=== PATIENT | female | born 2000 | race Caucasian/White ===

== ENCOUNTER 2022-04-11 19:31 | Emergency (ER) | payer BC, SELFPAY ==
[2022-04-11 20:30] VITALS: BP 154/78; PULSE 89; RESP 18; TEMP 36.6; O2SAT 99; BMI 37.1
--- NOTE | 2022-04-11 21:06 | ED.SKABFB ---
HPI - Skin/Abscess/Foreign Bdy General Chief complaint: Skin/Abscess/Foreign Body Stated complaint: Possible staff infection Time Seen by Provider: 04/11/22 20:30 History of Present Illness HPI narrative: This 22-year-old female comes in with redness and pain in her right hand. She states that she scraped her hand about 6 weeks ago when moving into an apartment. 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 However she does get scratches on her hands. She has had cellulitis for under these circumstances in the past and feels like this is recurred again here. She also states that she has eczema in is using moist arising and steroid creams to treat this. She does not report any fevers. Related Data Home Medications Medication Instructions Recorded Confirmed brexpiprazole 2 mg tablet (Rexulti) 2 mg PO HS 04/11/22 04/11/22 bupropion HCl 300 mg 24 hr tablet, 300 mg PO DAILY 04/11/22 04/11/22 extended release dextroamphetamine-amphetamine ER 25 mg PO DAILY 04/11/22 04/11/22 25 mg 24hr capsule,extend release dextroamphetamine-amphetamine ER 30 mg PO DAILY 04/11/22 04/11/22 30 mg 24hr capsule,extend release etonogestrel 68 mg subdermal 1 implant subdermal .6 months 04/11/22 04/11/22 implant (Nexplanon) propranolol 40 mg tablet 40 mg PO DAILY 04/11/22 04/11/22 trazodone 50 mg tablet 50 mg PO HS 04/11/22 04/11/22 Allergies Allergy/AdvReac Type Severity Reaction Status Date / Time amoxicillin Allergy Mild Hives Verified 04/11/22 20:38 Review of Systems Status of ROS: Reports: 10 or more systems reviewed and unremarkable except as noted in History and below Narrative: Constitutional: No fevers, no weight gain or loss. Eyes: No discharge. No vision changes. HENT: No congestion, no sore throat, no ear pain. Cardiovascular: No chest pain, no palpitations. Respiratory: No shortness of breath, no wheezes, no cough. Gastrointestinal: No abdominal pain, no vomiting, no diarrhea. Genitourinary: No dysuria, no hematuria. Musculoskeletal: Normal range of motion. Skin: Erythema, warmth, and pain in the right hand. Neurological: No dizziness, weakness, sensory change, speech change. Endo/Heme/Allergies: No bruising or bleeding. No polydipsia. Pysch: no suicidality, no anxiety, no insomnia. All other systems reviewed and are negative. Exam Narrative: Exam Narrative: Constitutional: Well-developed, well-nourished, no acute distress. HEENT: Normocephalic, atraumatic. Neck: Normal range of motion. Nontender. Supple. Heart: Intact distal pulses. Lungs: No chest discomfort. No wheezes, rhonchi, or rales. Abdomen: Nontender. Back: Normal range of motion. Extremities: Normal range of motion. No injury. Skin: The dorsal aspect of the right hand and somewhat on the palmar aspect is erythema, warmth, and mild swelling. Neurologic: No altered sensation. No weakness. Alert and oriented. Psychiatric: No suicidality. No anxiety or depression. No insomnia. Nursing notes and vitals signs are reviewed. Const: Vital Signs, click to edit/add: Vital Signs - 24 hr 04/11/22 20:30 Temperature 97.9 F Pulse Rate [Right Pulse Oximeter] 89 Respiratory Rate 18 Blood Pressure [Ri ght Upper Arm] 154/78 H Pulse Oximetry 99 Oxygen Delivery Me thod Room Air Course Vital Signs Vital signs: Initial Vital Signs Temperature 97.9 F 04/11/22 20:30 Temperature Source Temporal Artery Scan 04/11/22 20:30 Pulse Rate 89 04/11/22 20:30 Respiratory Rate 18 04/11/22 20:30 Blood Pressure 154/78 H 04/11/22 20:30 Blood Pressure Mean 103 04/11/22 20:30 Blood Pressure Position Sitting 04/11/22 20:30 Pulse Oximetry 99 04/11/22 20:30 Oxygen Delivery Method 04/11/22 20:30 Vital Signs Temperature 97.9 F 04/11/22 20:30 Pulse Rate 89 04/11/22 20:30 Respiratory Rate 18 04/11/22 20:30 Blood Pressure 154/78 H 04/11/22 20:30 Pulse Oximetry 99 04/11/22 20:30 Oxygen Delivery Method 04/11/22 20:30 Temperature 97.9 F 04/11/22 20:30 Pulse Rate 89 04/11/22 20:30 Respiratory Rate 18 04/11/22 20:30 Blood Pressure 154/78 H 04/11/22 20:30 Pulse Oximetry 99 04/11/22 20:30 Oxygen Delivery Method 04/11/22 20:30 MDM - Skin/Abscess/Foreign Bdy MDM Narrative Medical decision making narrative: This patient comes in with symptoms on her right hand that are suspicious for a cellulitis. She received a prescription for Keflex. She is not showing any signs of more serious condition and arrives here with normal vital signs. She is okay to return home. Discharge Plan Discharge Clinical Impression: Cellulitis Patient Disposition: Home, Self-Care Condition: Stable Additional Instructions: Take medication as prescribed. Consider using Amlactin lotion for moisturizing. Follow up with MD or return if worsening. Prescriptions: No Action Rexulti 2 mg tablet 2 mg PO HS Label Comments: TAKE 1 TABLET BY MOUTH DAILY AT BEDTIME bupropion HCl 300 mg tablet extended release 24 hr 300 mg PO DAILY Label Comments: TAKE 1 TABLET BY MOUTH DAILY IN THE MORNING dextroamphetamine-amphetamine 25 mg capsule,extended release 24hr 25 mg PO DAILY Label Comments: TAKE 1 CAPSULE BY MOUTH DAILY IN THE MORNING IN ADDITION TO 30 MG TO. MAKE A TOTAL OF 55 MG dextroamphetamine-amphetamine 30 mg capsule,extended release 24hr 30 mg PO DAILY Label Comments: TAKE 1 CAPSULE BY MOUTH DAILY IN THE MORNING propranolol 40 mg tablet 40 mg PO DAILY Label Comments: TAKE 1 TABLET BY MOUTH DAILY IN THE MORNING trazodone 50 mg tablet 50 mg PO HS Label Comments: TAKE 1 TABLET BY MOUTH AT BEDTIME Nexplanon 68 mg implant 1 implant subdermal .6 months Follow Up/Referrals: Provider,Not a Local [Primary Care Provider] - Stand Alone Forms: [facility] Info Instructions
[2022-04-11] MEDS: cephALEXin 500 MG CAPSULE PO (21:34)
[2022-04-11 22:11] VITALS: BP 145/69; PULSE 84; RESP 18; TEMP 36.6; O2SAT 99
== END 2022-04-11 22:11 | disposition home or self-care (01) ==
PROVIDERS: Emergency Provider Emergency Medicine Emergency Medical Services
DX: L03.113 Cellulitis of right upper limb (principal)
CPT/HCPCS: 99283; 99284; A9270

== ENCOUNTER 2022-07-20 12:26 | Emergency (ER) | payer BC, SELFPAY ==
[2022-07-20 12:59] VITALS: BP 119/85; PULSE 86; RESP 24; TEMP 36.4; O2SAT 91; BMI 41.6
[2022-07-20 13:24] VITALS: PULSE 80; O2SAT 92
--- NOTE | 2022-07-20 13:28 | ED.GENADULT ---
HPI - General Adult General Time Seen by Provider: 13:28 Date Seen: 07/20/22 Chief complaint: Shortness of Breath/Dyspnea Stated complaint: Difficulty breathing Time Seen by Provider: 07/20/22 13:27 Source: patient Mode of arrival: ambulatory History of Present Illness HPI narrative: Aurea is a 22 year old female past medical history of childhood asthma controlled on albuterol and Flovent, depression, seasonal allergy presents emerged department from [facility] with shortness of breath and dyspnea. Patient was sent over by the [facility] MD due to low O2 sats and worsening shortness of breath, she was around horses yesterday about 8 hours and developed increasing worsening shortness of breath, she received an albuterol nebulizer prior to coming over at 11:50 a.m.. Patient feels that she has exertional shortness of breath, dry cough, she denies any chest pain, fevers or chills, she has been around horses in the past usually for about 2 hours using gets itchy eyes never had this short of breath. Patient did take a negative COVID test yesterday. No family history of cardiac disease. Patient denies any history any PEs or DVTs, no long travel. Related Data Home Medications Medication Instructions Recorded Confirmed brexpiprazole 2 mg tablet (Rexulti) 2 mg PO HS 04/11/22 07/20/22 bupropion HCl 300 mg 24 hr tablet, 300 mg PO DAILY 04/11/22 07/20/22 extended release dextroamphetamine-amphetamine ER 25 mg PO DAILY 04/11/22 07/20/22 25 mg 24hr capsule,extend release dextroamphetamine-amphetamine ER 30 mg PO DAILY 04/11/22 07/20/22 30 mg 24hr capsule,extend release etonogestrel 68 mg subdermal 1 implant subdermal .6 months 04/11/22 07/20/22 implant (Nexplanon) propranolol 40 mg tablet 40 mg PO DAILY 04/11/22 07/20/22 trazodone 50 mg tablet 50 mg PO HS 04/11/22 07/20/22 sertraline 50 mg tablet 50 mg PO DAILY 07/20/22 07/20/22 Previous Rx's Medication Instructions Recorded prednisone 20 mg tablet 40 mg PO DAILY 4 days #8 tabs 07/20/22 Allergies Allergy/AdvReac Type Severity Reaction Status Date / Time pollen extracts Allergy Severe Congested Verified 07/20/22 13:04 cats Allergy Severe Congested Uncoded 07/20/22 13:04 dogs Allergy Severe Congested Uncoded 07/20/22 13:04 horses Allergy Severe Congested Uncoded 07/20/22 13:04 Review of Systems Status of ROS: Reports: 10 or more systems reviewed and unremarkable except as noted in History and below [facility] Medical History (Updated 07/20/22 @ 15:30 by Thomas Maddox MD) ADHD (attention deficit hyperactivity disorder) Anxiety Depression OCD (obsessive compulsive disorder) Surgical History (Updated 04/11/22 @ 22:09 by Valentino Haddad RN) No significant past surgical history Social History Smoking Status: Never smoker Do you use any of these nicotine containing products: Vaping Products Second hand tobacco smoke exposure: No How often do you have a drink containing alcohol: monthly or less How many standard drinks containing alcohol do you have on a typical day: 1 or 2 AUDIT-C Alcohol total score: 1 Non-prescribed substance use: marijuana (any form) Non-prescribed substance use details: occasionally service: No Exam Narrative: Exam Narrative: General: No obvious distress sitting comfortably HEENT: Tympanic membranes within normal limits, oropharynx clear and moist, extraocular muscles intact, pupils equal round reactive to light Neck: Supple full range of motion Heart: Normal sinus rhythm S1-S2 Lungs: Mild inspiratory and expiratory wheezes throughout Abdomen: Soft nontender, bowel sounds present Neuro: Alert awake and oriented x3 Const: Vital Signs, click to edit/add: Vital Signs - 24 hr 07/20/22 12:59 07/20/22 13:24 07/20/22 14:36 Temperature 97.6 F Pulse Rate [Pulse Oximeter] 86 80 90 Respiratory Rate 24 Blood Pressure [Ri ght Upper Arm] 119/85 Pulse Oximetry 91 92 94 Oxygen Delivery Me thod Room Air Room Air Room Air 07/20/22 15:43 Temperature Pulse Rate [Pulse Oximeter] 84 Respiratory Rate 16 Blood Pressure [Ri ght Upper Arm] Pulse Oximetry 96 Oxygen Delivery Me thod Room Air Course Course Hospital Course: 1:30 PM: AIDET performed. Her vitals are stable at this time, workup will include basic labs include a CBC, D-dimer and BMP, will give her prednisone 40 mg orally and one DuoNeb, suspect asthma exacerbation. Differential diagnosis include life-threatening pulmonary embolism, other etiologies include pneumonia, viral illness, bronchitis, asthma exasperation, pneumothorax, as well as other etiologies. Reevaluation(s) Reevaluation #1: Patient was updated on her lab and imaging results, chest x-ray showed no acute cardiopulmonary process, CBC showed mild leukocytosis, D-dimer within normal limits, metabolic panel within normal limits, she is feeling better after above care given, O2 sats on room air greater than 95%, plan to discharge should albuterol inhaler, prednisone over the next 4 days she should follow-up primary care provider in the next 7-10 days at [facility], return precautions given. Time: 15:00 Vital Signs Vital signs: Initial Vital Signs Temperature 97.6 F 07/20/22 12:59 Temperature Source Temporal Artery Scan 07/20/22 12:59 Pulse Rate 86 07/20/22 12:59 Pulse Rhythm 07/20/22 12:59 Pulse Strength 3+ Normal 07/20/22 12:59 Respiratory Rate 24 07/20/22 12:59 Blood Pressure 119/85 07/20/22 12:59 Blood Pressure Mean 96 07/20/22 12:59 Blood Pressure Position Sitting 07/20/22 12:59 Pulse Oximetry 91 07/20/22 12:59 Oxygen Delivery Method 07/20/22 12:59 Vital Signs Temperature 97.6 F 07/20/22 12:59 Pulse Rate 86 07/20/22 12:59 Respiratory Rate 24 07/20/22 12:59 Blood Pressure 119/85 07/20/22 12:59 Pulse Oximetry 91 07/20/22 12:59 Oxygen Delivery Method 07/20/22 12:59 Temperature 97.6 F 07/20/22 12:59 Pulse Rate 84 07/20/22 15:43 Respiratory Rate 16 07/20/22 15:43 Blood Pressure 119/85 07/20/22 12:59 Pulse Oximetry 96 07/20/22 15:43 Oxygen Delivery Method 07/20/22 15:43 Medical Decision Making Lab Data Labs: Lab Results 07/20/22 07/20/22 07/20/22 Range/Units 14:18 14:18 14:18 WBC 11.23 H (4.50-11.00) K/uL RBC 4.91 (4.00-5.20) m/uL Hgb 15.1 (12.0-16.0) gm/dL Hct 44.5 (33.0-51.0) % MCV 91 (80-100) fL MCH 31 (26-34) pg MCHC 34 (32-36) gm/dL RDW Coeff of Helga 12.3 (11.5-15.5) % Plt Count 450 H (140-440) K/uL Neut % (Auto) 54.1 (42.0-72.0) % Lymph % (Auto) 28.3 (20-44) % Glades % (Auto) 6.3 (0.0-11.0) % Eos % (Auto) 10.0 H (0.0-7.0) % Baso % (Auto) 0.4 (0.0-3.0) % Neut # (Auto) 6.10 (1.7-7.0) K/uL Lymph # (Auto) 3.20 H (0.90-2.90) K/uL Glades # (Auto) 0.70 (0.00-0.90) K/UL Eos # (Auto) 1.10 H (0.00-0.50) K/uL Baso # (Auto) 0.00 (0.00-0.30) K/uL D-Dimer Quant (PE/DVT) 0.33 (0.00-0.50) ug/ml Sodium 141 (135-149) mmol/L Potassium 5.0 (3.6-5.1) mmol/L Chloride 105 (96-114) mmol/L Carbon Dioxide 27 (20-32) mmol/L BUN 11 (5-24) mg/dL Creatinine 0.6 (0.5-1.5) mg/dL Estimated Creat Clear 133.46 Estimated GFR 131 ml/min Glucose 100 (60-115) mg/dL Calcium 9.4 (8.4-10.6) mg/dL Discharge Plan Discharge Clinical Impression: Asthma with acute exacerbation Patient Disposition: Home, Self-Care Condition: Improved Instructions: Asthma (ED) Additional Instructions: To continue with albuterol inhaler 1-2 puffs every 4-6 hours, prednisone 40 mg once daily over the next 4 days, follow-up with primary care provider over the next 7-10 days. Return if worseing symptoms. Activity Level: No Restrictions Prescriptions: New prednisone 20 mg tablet 40 mg PO DAILY 4 Days Qty: 8 0RF No Action Rexulti 2 mg tablet 2 mg PO HS Label Comments: TAKE 1 TABLET BY MOUTH DAILY AT BEDTIME bupropion HCl 300 mg tablet extended release 24 hr 300 mg PO DAILY Label Comments: TAKE 1 TABLET BY MOUTH DAILY IN THE MORNING dextroamphetamine-amphetamine 25 mg capsule,extended release 24hr 25 mg PO DAILY Label Comments: TAKE 1 CAPSULE BY MOUTH DAILY IN THE MORNING IN ADDITION TO 30 MG TO. MAKE A TOTAL OF 55 MG dextroamphetamine-amphetamine 30 mg capsule,extended release 24hr 30 mg PO DAILY Label Comments: TAKE 1 CAPSULE BY MOUTH DAILY IN THE MORNING propranolol 40 mg tablet 40 mg PO DAILY Label Comments: TAKE 1 TABLET BY MOUTH DAILY IN THE MORNING trazodone 50 mg tablet 50 mg PO HS Label Comments: TAKE 1 TABLET BY MOUTH AT BEDTIME Nexplanon 68 mg implant 1 implant subdermal .6 months sertraline 50 mg tablet 50 mg PO DAILY Label Comments: TAKE 1 TABLET BY MOUTH DAILY Follow Up/Referrals: Provider,Not a Local [Primary Care Provider] - Stand Alone Forms: [email or web address] Info Instructions
[2022-07-20] MEDS: predniSONE 20 MG TABLET 40 MG PO (13:58)
[2022-07-20] MEDS: IPRAT-ALBUT 0.5-2.5 MG/3 ML NEB 1 NEB IH (13:59)
[2022-07-20 14:30] LABS: Basophils Percent Auto 0.4 % (0.0-3.0); Hematocrit 44.5 % (33.0-51.0); Hemoglobin* 15.1 gm/dL (12.0-16.0); Immature Granulocytes Pct Auto 0.9 %; Lymphocytes Percent Auto 28.3 % (20-44); Mean Corpuscular HGB Conc 34 gm/dL (32-36); Mean Corpuscular Hemoglobin 31 pg (26-34); Mean Corpuscular Volume 91 fL (80-100); Monocytes Percent Auto 6.3 % (0.0-11.0); Neutrophils Percent Auto 54.1 % (42.0-72.0); Platelet Count* 450 K/uL (140-440); RDW Coefficient of Variation % 12.3 % (11.5-15.5); Red Blood Count 4.91 m/uL (4.00-5.20); White Blood Count* 11.23 K/uL (4.50-11.00)
--- OUTSIDE RECORDS SUMMARY | 2022-07-20 14:30 | XMS_ITS | Clinical Summary ---
:2000 Author Organization [facility] Address [address] [place] [address] Phone Care Team Providers Name Role Phone Catherine Arnett MD Unavailable [phone] Reason for Visit and Chief Complaint [Patient Encounter] Problems Includes: Problems addressed during this encounter and other active Problems All Visits Onset Date Resolved Date Provider Condition Stat us Allergic rhinitis, unspecified Unknown Active Last Documented On 07/21/2020 12:48PM ; Pediatrics Not e: Allergic Rhinitis: [facility] ASTHMA NOS Unknown Active Last Documented On 07/21/2020 12:48PM ; Pediatrics Not e: Asthma - Mild, Intermittent: [facility] Plan of Treatment No Plan of Treatment Recorded Assessments Includes: Assessments from this encounterNo Assessments Recorded Medical Equipment - Implanted Devices Includes: Current DevicesNo Medical Equipment Recorded Medications Administered Includes: Administered Medications from this encounterNo Administered Medications Recorded Vital Signs Includes: Vital Signs from this encounter Vital Name 01/18/2016 09:44A Blood Pressure Sitting (mmHg) 106/58 Pulse Rate-Sitting (bpm) 66 Height (in) 65.2 Weight (lb) 156 Body Mass Index (kg/m2) 25.8 Body Surface Area (m2) 1.8 Last Documented On: 07/19/2020 8:54AM ; [facility] Results Includes: Results discussed during this encounterNo Results Recorded For Specified Dates History of Present Illness Includes: History of Present Illness from this encounterNo History of Present Illness Recorded Social History No Social History Recorded - Smoking Status Unknown Medical History Includes: Medical History addressed during this encounterNo Medical History Recorded Family History Includes: Family History addressed during this encounterNo Family History Recorded Review of Systems Includes: Review of Systems from this encounterNo Review of Systems Recorded Mental Status Includes: Mental Status from this encounterNo Mental Status Recorded Functional Status Includes: Functional Status from this encounterNo Functional Status Recorded Physical Exam Includes: Physical Exam from this encounterNo Physical Exam Recorded Allergies Includes: Active Allergies Substance Type Reaction Onset Date Resolved Date Status TREES Allergy Active Last Documented On 07/21/2020 12:30PM ; Note: Imported from external source. [facility] SEASONAL Allergy Active Last Documented On 07/21/2020 12:30PM ; Note: Imported from external source. [facility] GRASSES Allergy Active Last Documented On 07/21/2020 12:30PM ; Note: Imported from external source. [facility] Cats Allergy Active Last Documented On 07/21/2020 12:30PM ; Note: Imported from external source. [facility] AMOXICILLIN Allergy Active Last Documented On 07/21/2020 12:30PM ; Note: Imported from external source. [facility] NO KNOWN FOOD ALLERGIES Allergy Active Last Documented On 07/21/2020 12:30PM ; Note: Imported from external source. [facility] Encounters Encounter Provider Location Date Check-In Time Check-Out Time D iagnosis [Patient 01/18/2016 12:00AM 11:59PM Encounter] Insurance Includes: Active Insurance Policies Plan Name Member ID Group # Subscriber Relationship Effective Da eldon 1 - Premera MSJ [id number] Moses Ledezma Other 2008 - [employer] Unknown Clinical Notes Includes: Clinical Notes from this encounterNo Clinical Notes Recorded
--- OUTSIDE RECORDS SUMMARY | 2022-07-20 14:30 | XMS_ITS | Clinical Summary ---
:2000 Author Organization [facility] Address [address] [place] [address] Phone Care Team Providers Name Role Phone Catherine Arnett MD Unavailable [phone] Reason for Visit and Chief Complaint [Patient Encounter] Problems Includes: Problems addressed during this encounter and other active Problems All Visits Onset Date Resolved Date Provider Condition Stat us Allergic rhinitis, unspecified Unknown Active Last Documented On 07/21/2020 12:48PM ; Pediatrics Not e: Allergic Rhinitis: [facility] ASTHMA NOS Unknown Active Last Documented On 07/21/2020 12:48PM ; Pediatrics Not e: Asthma - Mild, Intermittent: [facility] Plan of Treatment No Plan of Treatment Recorded Assessments Includes: Assessments from this encounterNo Assessments Recorded Medical Equipment - Implanted Devices Includes: Current DevicesNo Medical Equipment Recorded Medications Administered Includes: Administered Medications from this encounterNo Administered Medications Recorded Results Includes: Results discussed during this encounterNo Results Recorded For Specified Dates History of Present Illness Includes: History of Present Illness from this encounterNo History of Present Illness Recorded Social History No Social History Recorded - Smoking Status Unknown Medical History Includes: Medical History addressed during this encounter Description Last Updated Past medical history 12/02/2009 Last Documented On 12/02/2009 4:38PM ; [facility] Past medical history 12/02/2009 Last Documented On 12/02/2009 4:37PM ; [facility] Family History Includes: Family History addressed during [...] Note: Imported from external source. [facility] SEASONAL Allergy Active Last Documented On 07/21/2020 12:30PM ; Note: Imported from external source. [facility] GRASSES Allergy Active Last Documented On 07/21/2020 12:30PM ; Note: Imported from external source. [facility] Cats Allergy Active Last Documented On 07/21/2020 12:30PM ; Note: Imported from external source. [facility] AMOXICILLIN Allergy Active Last Documented On 07/21/2020 12:30PM ; Note: Imported from external source. [facility] NO KNOWN FOOD ALLERGIES Allergy Active Last Documented On 07/21/2020 12:30PM ; Note: Imported from external source. [facility] Encounters Encounter Provider Location Date Check-In Time Check-Out Time D iagnosis [Patient Catherine Pandey [facility] 07/22/2020 12:00AM 11:59PM Encounter] Insurance Includes: Active Insurance Policies Plan Name Member ID Group # Subscriber Relationship Effective Da eldon 1 - Premer[place] MS [id number] Moses Ledezma Other 2008 - [employer] Unknown Clinical Notes Includes: Clinical Notes from this encounterNo Clinical Notes Recorded
--- OUTSIDE RECORDS SUMMARY | 2022-07-20 14:30 | XMS_ITS ---
:2000 Author Organization [facility] Address [address] [place] [address] Phone Care Team Providers Name Role Phone Catherine Arnett MD Unavailable [phone] Problems Includes: Active, inactive, and resolved Problems All Visits Onset Date Resolved Date Provider Condition Stat us Allergic rhinitis, unspecified Unknown Active Last Documented On 07/21/2020 12:48PM ; Pediatrics Not e: Allergic Rhinitis: [facility] ASTHMA NOS Unknown Active Last Documented On 07/21/2020 12:48PM ; Pediatrics Not e: Asthma - Mild, Intermittent: [facility] Plan of Treatment No Plan of Treatment Recorded Assessments Includes: Assessments for all patient encountersNo Assessments Recorded Medical Equipment - Implanted Devices Includes: Current and historical DevicesNo Medical Equipment Recorded Medications Includes: Current and historical Medications Past Medications on file Azithromycin 250 MG OR TABS 08/05/2015 - 01/16/2016 Provider: Diagnosis: take 2 tablets (500 mg) by oral route once daily for 1 day t Last Documented On 07/21/2020 11:29AM By Conversion User ; [facility] Azithromycin 250 MG OR TABS 02/20/2012 - 02/25/2012 Provider: Diagnosis: take 2 tablets (500 mg) by oral route once daily for 1 day t Last Documented On 07/21/2020 11:29AM By Conversion User ; [facility] Azithromycin 250 MG OR TABS 12/23/2011 - 12/28/2011 Provider: Diagnosis: take 2 tablets (500 mg) by oral route once daily for 1 day t Last Documented On 07/21/2020 11:29AM By Conversion User ; [facility] Dexamethasone 4 MG OR TABS 12/19/2011 - 01/16/2016 Provider: Diagnosis: take 3 tablets PO x1 on 12/18, can crush and give with apple Last Documented On 07/21/2020 11:29AM By Conversion User ; [facility] Medications Administered Includes: Administered Medications in patient's chartNo Administered Medications Recorded Results Includes: Results from 07/20/2021 through 07/20/2022No Results Recorded For Specified Dates History of Present Illness History of Present Illness not supported for this document typeNo History of Present Illness Recorded Social History No Social History Recorded - Smoking Status Unknown Medical History Includes: Medical History in patient's chart Description Last Updated Past medical history 12/02/2009 Last Documented On 12/02/2009 4:37PM ; P [facility] Family History Includes: Family History in patient's chartNo Family History Recorded Review of Systems Review of Systems not supported for this document typeNo Review of Systems Recorded Mental Status No Mental Status Recorded Functional Status No Functional Status Recorded Physical Exam Physical Exam not supported for this document typeNo Physical Exam Recorded Immunizations Includes: Immunizations in patient's chart Vaccine Dose # Date Site Reaction(s) Status Source DTaP 1 2001 Complete (Reported) Patient Last Documented On 07/20/2020 12:27PM ; [facility] Note: DTaP Pediatrics DTaP 2 2001 Complete (Reported) Patient Last Documented On 07/20/2020 12:27PM ; [facility] DTaP 3 2001 Complete (Reported) Patient Last Documented On 07/20/2020 12:27PM ; [facility] DTaP 4 04/12/2002 Complete (Reported) Patient Last Documented On 07/20/2020 12:27PM ; [facility] Note: DTaP Pediatrics DTaP 5 01/11/2006 Complete (Reported) Patient Last Documented On 07/20/2020 12:27PM ; [facility]: D[facility] Pediatric[facility] H1N1 1 07/12/2009 Complete (Reported) Patient Last Documented On 07/20/2020 12:27PM ; [facility]: H1N1 Pediatrics H1N1 2 08/08/2009 Complete (Reported) Patient Last Documented On 07/20/2020 12:27PM ; [facility] Note: H1N1 Pediatrics Hep A 1 01/20/2003 Complete (Reported) Patient Last Documented On 07/20/2020 12:27PM ; [facility] Note: HepA Pediatrics Hep A 2 01/14/2004 Complete (Reported) Patient Last Documented On 07/20/2020 12:27PM ; [facility] [place] Note: HepA Pediatrics Hep B 1 2001 Complete (Reported) Patient Last Documented On 07/20/2020 12:27PM ; [facility] [place] Note: HepB Pediatrics Hep B 2 2001 Complete (Reported) Patient Last Documented On 07/20/2020 12:27PM ; [facility] Note: HepB Pediatrics Hep B 3 2001 Complete (Reported) Patient Last Documented On 07/20/2020 12:27PM ; [facility] Note: HepB Pediatrics Hib 1 2001 Complete (Reported) Patient Last Documented On 07/20/2020 12:27PM ; [facility] [place] Note: Hib Pediatrics Hib 2 2001 Complete (Reported) Patient Last Documented On 07/20/2020 12:27PM ; [facility] Note: Hib Pediatrics Hib 3 2001 Complete (Reported) Patient Last Documented On 07/20/2020 12:27PM ; [facility] Note: Hib Pediatrics Hib 4 04/12/2002 Complete (Reported) Patient Last Documented On 07/20/2020 12:27PM ; [facility] [place] Note: Hib Pediatrics HPV9 1 02/06/2012 Complete (Administered) [facility] Last Documented On 07/20/2020 12:27PM ; [facility] [place] Note: HPV Pediatrics HPV9 2 05/04/2012 Complete (Administered) [facility] Last Documented On 07/20/2020 12:27PM ; [facility] [place] Note: HPV Pediatrics HPV9 3 08/14/2012 Complete (Administered) [facility] Last Documented On 07/20/2020 12:27PM ; [facility] Note: HPV Pediatrics Influenza 1 07/12/2009 Complete (Reported) Patient Last Documented On 07/20/2020 12:27PM ; [facility] Note: Influenza [facility] Influenza 2 08/08/2009 Complete (Administered) [facility] Last Documented On 07/20/2020 12:27PM ; [facility] Note: Influenza [facility] Influenza 3 03/20/2010 Complete (Reported) Patient Last Documented On 07/20/2020 12:27PM ; [facility] Note: Influenza [facility] Influenza 4 02/24/2012 Complete (Administered) [facility] Last Documented On 07/20/2020 12:27PM ; [facility] Note: Influenza [facility] IPV 1 2001 Complete (Reported) Patient Last Documented On 07/20/2020 12:27PM ; [facility] [place] Note: IPV Pediatrics IPV 2 2001 Complete (Reported) Patient Last Documented On 07/20/2020 12:27PM ; [facility] Note: IPV Pediatrics IPV 3 2001 Complete (Reported) Patient Last Documented On 07/20/2020 12:27PM ; [facility] Note: IPV Pediatrics IPV 4 01/11/2006 Complete (Reported) Patient Last Documented On 07/20/2020 12:27PM ; [facility] [place] Note: IPV Pediatrics Men ACWY 1 02/06/2012 Complete (Administe red) [facility] Last Documented On 07/20/2020 12:27PM ; [facility] Note: Menactra [facility] MMR 1 01/07/2002 Complete (Reported) Patient Last Documented On 07/20/2020 12:27PM ; [facility] [place] Note: MMR Pediatrics MMR 2 01/11/2006 Complete (Reported) Patient Last Documented On 07/20/2020 12:27PM ; [facility] Note: MMR Pediatrics PCV7 1 2001 Complete (Reported) Patient Last Documented On 07/20/2020 12:27PM ; [facility] Note: PCV7 Pediatrics PCV7 2 2001 Complete (Reported) Patient Last Documented On 07/20/2020 12:27PM ; [facility] Note: PCV7 Pediatrics PCV7 3 2001 Complete (Reported) Patient Last Documented On 07/20/2020 12:27PM ; [facility] Note: PCV7 Pediatrics PCV7 4 01/20/2003 Complete (Reported) Patient Last Documented On 07/20/2020 12:27PM ; [facility] Note: PCV7 Pediatrics Tdap 1 02/06/2012 Complete (Administered) Sandrita greene [facility] Last Documented On 07/20/2020 12:27PM ; [facility] Note: Tdap Pediatrics Varicella 1 01/07/2002 Complete (Reported) Patient Last Documented On 07/20/2020 12:27PM ; [facility] Note: Varicella [facility] Varicella 2 01/08/2009 Complete (Reported) Patient Last Documented On 07/20/2020 12:27PM ; [facility] Note: Varicella [facility] Allergies Includes: Active, inactive, and resolved Allergies Substance Type Reaction Onset Date Resolved Date Status TREES Allergy Active Last Documented On 07/21/2020 12:30PM ; Note: Imported from external source. [facility] SEASONAL Allergy Active Last Documented On 07/21/2020 12:30PM ; Note: Imported from external source. [facility] GRASSES Allergy Active Last Documented On 07/21/2020 12:30PM ; Note: Imported from external source. [facility] Cats Allergy Active Last Documented On 07/21/2020 12:30PM ; Note: Imported from external source. [facility] AMOXICILLIN Allergy Active Last Documented On 07/21/2020 12:30PM ; Note: Imported from external source. [facility] NO KNOWN FOOD ALLERGIES Allergy Active Last Documented On 07/21/2020 12:30PM ; Note: Imported from external source. [facility] Insurance Includes: Active Insurance Policies Plan Name Member ID Group # Subscriber Relationship Effective Da eldon 1 - Premer[employer] [id number] Moses Ledezma Other 2008 - [employer] Unknown Clinical Notes Includes: Signed Clinical Notes starting from 06/25/2023No Clinical Notes Recorded
--- OUTSIDE RECORDS SUMMARY | 2022-07-20 14:30 | XMS_ITS ---
Care Plan - [facility] Created on:July 20, 2022 Patient:Aurea Ledezma Sex:Female :2000 Author Organization [facility] Address [address] [address] Phone Care Team Providers Name Role Phone Catherine Arnett MD Unavailable [phone]
--- OUTSIDE RECORDS SUMMARY | 2022-07-20 14:31 | XMS_ITS | Clinical Summary ---
:2000 Author Organization [facility] Address [address] [place] [address] Phone Care Team Providers Name Role Phone Catherine Arnett MD Unavailable [phone] Reason for Visit and Chief Complaint [Patient Encounter] Problems Includes: Problems addressed during this encounter and other active Problems All Visits Onset Date Resolved Date Provider Condition Stat us Allergic rhinitis, unspecified Unknown Active Last Documented On 07/21/2020 12:48PM ; Pediatrics Not e: Allergic Rhinitis: [facility] ASTHMA NOS Unknown Active Last Documented On 07/21/2020 12:48PM ; Pediatrics Not e: Asthma - Mild, Intermittent: [facility] Plan of Treatment No Plan of Treatment Recorded Assessments Includes: Assessments from this encounterNo Assessments Recorded Medical Equipment - Implanted Devices Includes: Current DevicesNo Medical Equipment Recorded Medications Administered Includes: Administered Medications from this encounterNo Administered Medications Recorded Vital Signs Includes: Vital Signs from this encounter Vital Name 11/21/2014 03:29P Weight (lb) 141.25 Last Documented On: 07/19/2020 8:54AM ; [facility] Results Includes: Results discussed during this encounterNo [...] Note: Imported from external source. [facility] SEASONAL Allergy Active Last Documented On 07/21/2020 12:30PM ; Note: Imported from external source. [facility] GRASSES Allergy Active Last Documented On 07/21/2020 12:30PM ; Note: Imported from external source. [facility] Cats Allergy Active Last Documented On 07/21/2020 12:30PM ; Note: Imported from external source. [facility] AMOXICILLIN Allergy Active Last Documented On 07/21/2020 12:30PM ; Note: Imported from external source. [facility] NO KNOWN FOOD ALLERGIES Allergy Active Last Documented On 07/21/2020 12:30PM ; Note: Imported from external source. [facility] Encounters Encounter Provider Location Date Check-In Time Check-Out Time D iagnosis [Patient 11/21/2014 12:00AM 11:59PM Encounter] Insurance Includes: Active Insurance Policies Plan Name Member ID Group # Subscriber Relationship Effective Jose Daniel colón 1 - [employer] [id number] Moses Ledezma Other 2008 - [employer] Unknown Clinical Notes Includes: Clinical Notes from this encounterNo Clinical Notes Recorded
--- OUTSIDE RECORDS SUMMARY | 2022-07-20 14:31 | XMS_ITS | Clinical Summary ---
:2000 Author Organization [facility] Address [address] [place] [address] Phone Care Team Providers Name Role Phone Catherine Arntet MD Unavailable [phone] Reason for Visit and Chief Complaint [Patient [...] Vital Signs from this encounter Vital Name 08/05/2015 01:42P Height (in) 65.1 Weight (lb) 162.62 Body Mass Index (kg/m2) 27.0 Body Surface Area (m2) 1.8 Last Documented On: 07/19/2020 8:54AM ; [facility] Results Includes: Results discussed during this [...] Note: Imported from external source. [facility] SEASONAL Allergy Active Last Documented On 07/21/2020 12:30PM ; Note: Imported from external source. [facility] GRASSES Allergy Active Last Documented On 07/21/2020 12:30PM ; Note: Imported from external source. [facility] Cats Allergy Active Last Documented On 07/21/2020 12:30PM ; Note: Imported from external source. [facility] AMOXICILLIN Allergy Active Last Documented On 07/21/2020 12:30PM ; Note: Imported from external source. [facility] NO KNOWN FOOD ALLERGIES Allergy Active Last Documented On 07/21/2020 12:30PM ; Note: Imported from external source. [facility] Encounters Encounter Provider Location Date Check-In Time Check-Out Time D iagnosis [Patient 08/05/2015 12:00AM 11:59PM Encounter] Insurance Includes: Active Insurance Policies Plan Name Member ID Group # Subscriber Relationship Effective Da eldon 1 - Premera MSJ [id number] Moses Ledezma Other 2008 - [employer] Unknown Clinical Notes Includes: Clinical Notes from this encounterNo Clinical Notes Recorded
--- OUTSIDE RECORDS SUMMARY | 2022-07-20 14:31 | XMS_ITS ---
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 Screen for STD (sexually transmitted disease) (Discharge Diagnosis) - 02/01/22 Screening for malignant neoplasm of cervix (Discharge Diagnosis) - 01/31/22 Attending Physician: Neelam Dyson PA-C Admitting Physician: Neelam Dyson PA-C Vital Signs Most recent to oldest [Reference Range]: 1 BSA 2.31 (02/01/22 2:56 PM) Blood Pressure [90-139/60-89 mmHg] 122/82 mmHg (02/01/22 2:56 PM) Body Mass Index 46 kg/m2 (02/01/22 2:56 PM) Height 167 cm (02/01/22 2:56 PM) Height In Inches 65.75 in (02/01/22 2:56 PM) Height Last Obtained Date (02/01/22 2:56 PM) Height Method Stated (02/01/22 2:56 PM) [place] Body Weight Calculation cm 59 (02/01/22 2:56 PM) Weight 128.1 kg (02/01/22 2:56 PM) Weight In Pounds 282.412 lb (02/01/22 2:56 PM) Weight Last Obtained Date (02/01/22 2:56 PM) Problem List Condition Effective Dates Status Health Status Informant Acute bronchitis(Confirmed) Resolved Amino acid deficiency(Confirmed) Resolved Anxiety(Confirmed) Resolved Back pain(Confirmed) Active Bipolar(Confirmed) Resolved BMI 45.0-49.9, adult(Confirmed) Active Depression(Confirmed) Resolved Eating disorder(Confirmed) Active Environmental allergies(Confirmed) Active Frequent headaches(Confirmed) Active COVID-19 vaccine series Active completed(Confirmed) Impetigo(Confirmed) Resolved Irregular menses(Confirmed)1 Resolved Elevated LFTs(Confirmed) Resolved Asthma, mild(Confirmed) Active Anxiety and depression(Confirmed) Active OCD - Obsessive-compulsive Resolved disorder(Confirmed) Riboflavin deficiency(Confirmed) Resolved Insomnia(Confirmed) Active Nexplanon in place(Confirmed) Active 1often weight associated with Hx eating disorders, also has longer cycles with Nexplanon Allergies, Adverse Reactions, Alerts Substance Reaction Severity Status amoxicillin Rash Active Medications Adderall 30 mg, Oral, DAILY BEFORE BREAKFAST, Take with 20mg tab (total 50mg), 0 Refill(s) Start Date: 06/30/20 Status: OrderedAdderall 20 mg oral tablet 20 mg =, 1, tab, po, DAILY BEFORE BREAKFAST, Takes with a 30mg tab (total 50mg), 0 Refill(s) Start Date: 02/09/21 Status: OrderedAdvair Diskus 100 mcg-50 mcg inhalation powder 1, puff, INH, BID, # 60, ea, 0 Refill(s), Pharmacy: [facility] #[id number], Asthma, 165.1, cm, 06/20/19 15:42:00 PST, Height, 110.6, kg, 06/20/19 15:42:00 PST, Weight Start Date: 10/30/19 Stop Date: 11/14/19 Status: DiscontinuedAllegra 24 Hour Allergy 180 mg, Oral, DAILY, PRN, Allergy Symptoms, 0 Refill(s) Start Date: 11/08/16 Status: Orderedazithromycin 250 mg oral tablet see instructions, Day 1 - Take 2 tablets by mouth as a single dose. Day 2 through 5 - Take 1 tablet by mouth daily until done., # 6, tab, 0 Refill(s), Pharmacy: [facility] [id number], Asthma exacerbation Start Date: 12/27/18 Stop Date: 12/30/18 Status: CompletedAzithromycin 5 Day Dose Pack 250 mg oral tablet see instructions, Day 1 - Take 2 tablets by mouth as a single dose. Day 2 through 5 - Take 1 tablet by mouth daily until done., # 6, tab, 0 Refill(s), Pharmacy: [facility], Influenza B Asthma exacerbation, 165.1, cm, 06/20/19 15:42:00 PST,... Start Date: 08/16/19 Stop Date: 08/21/19 Status: CompletedAzithromycin 5 Day Dose Pack 250 mg oral tablet see instructions, Day 1 - Take 2 tablets by mouth as a single dose. Day 2 through 5 - Take 1 tablet by mouth daily until done., # 6, tab, 0 Refill(s), Pharmacy: [facility] [id number], Acute bronchitis Asthma, mild Start Date: 05/26/17 Stop Date: 05/31/17 Status: CompletedAzithromycin 5 Day Dose Pack 250 mg oral tablet see instructions, Day 1 - Take 2 tablets by mouth as a single dose. Day 2 through 5 - Take 1 tablet by mouth daily until done., # 6, tab, 0 Refill(s), Pharmacy: [facility] [id number] Start Date: 10/28/18 Stop Date: 11/02/18 Status: CompletedBactrim DS 800 mg-160 mg oral tablet 1, tab, po, BID, X 7, day, # 14, tab, 0 Refill(s), Pharmacy: [facility] #[id number], UTI (urinary tract infection), 167, cm, 05/24/21 15:50:00 PST, Height, 127.3, kg, 02/18/21 14:15:00 PDT, Weight Start Date: 05/24/21 Stop Date: 05/31/21 Status: CompletedBactrim DS 800 mg-160 mg oral tablet 1, tab, po, BID, X 7, day, # 14, tab, 0 Refill(s), Pharmacy: [facility] #[id number], UTI (urinary tract infection), 167, cm, 05/24/21 15:50:00 PST, Height, 127.3, kg, 02/18/21 14:15:00 PDT, Weight Start Date: 05/24/21 Stop Date: 05/31/21 Status: CompletedBactrim DS 800 mg-160 mg oral tablet 1, tab, po, BID, may stop after 5 days if symptoms resolve, X 7, day, # 14, tab, 0 Refill(s), Pharmacy: [facility] #[id number], UTI symptoms, 167.64, cm, 06/30/20 11:22:00 PST, Height, 104.327, kg, 04/11/20 12:12:00 PDT, Weight Start Date: 12/11/20 Stop Date: 12/18/20 Status: CompletedBactroban 2% topical ointment = 1, max, top, TID, # 22, g, 0 Refill(s), Pharmacy: [facility], Folliculitis, 167, cm, 02/18/21 14:15:00 PDT, Height, 127.3, kg, 02/18/21 14:15:00 PDT, Weight Start Date: 03/07/21 Stop Date: 03/08/21 Status: CompletedBelviq 10 mg oral tablet 10 mg, = 1, tab, Oral, BID RT, # 60, tab, 0 Refill(s) Start Date: 02/20/17 Stop Date: 05/26/17 Status: DiscontinuedbuPROPion 150 mg/12 hours (SR) oral tablet, extended release See Instructions, 3 tab Oral daily = 450mg daily, 0 Refill(s) Start Date: 06/20/19 Status: OrderedbuPROPion 300 mg/24 hours (XL) oral tablet, extended release 300 mg, = 1, tab, Oral, QAM, 0 Refill(s) Start Date: 10/24/18 Stop Date: 06/20/19 Status: Discontinuedclobetasol 0.05% topical cream 1, max, top, BID, # 45, g, 3 Refill(s), Pharmacy: [facility] #[id number], Eczema, 167, cm, 05/24/21 15:50:00 PST, Height, 127.3, kg, 02/18/21 14:15:00 PDT, Weight Start Date: 01/10/22 Status: Orderedclobetasol 0.05% topical cream 1, max, top, BID, # 45, g, 0 Refill(s), Pharmacy: [facility] [id number] [facility], Eczema, 167, cm, 05/24/21 15:50:00 PST, Height, 127.3, kg, 02/18/21 14:15:00 PDT, Weight Start Date: 11/11/21 Stop Date: 11/12/21 Status: Completedclobetasol 0.05% topical cream 1, max, top, BID, # 45, g, 1 Refill(s), [id number], Eczema, 167, cm, 05/24/21 15:50:00 PST, Height, 127.3, kg, 02/18/21 14:15:00 PDT, Weight Start Date: 12/06/21 Stop Date: 12/07/21 Status: Completedclobetasol 0.05% topical ointment 1, max, top, BID, # 45, g, 1 Refill(s), Pharmacy: [facility] #[id number], Chronic eczema of foot, 167.64, cm, 06/30/20 11:22:00 PST, Height, 104.327, kg, 04/11/20 12:12:00 PDT, Weight Start Date: 11/30/20 Stop Date: 12/01/20 Status: Completedcyclobenzaprine 10 mg oral tablet 10 mg, = 1, tab, po, QHS, PRN, for spasm, # 30, tab, 0 Refill(s), Pharmacy: [facility] #[id number], Low back pain, 167.64, cm, 02/09/21 10:19:00 PDT, Height, 127.7, kg, 02/09/21 10:19:00 PDT, Weight Start Date: 02/09/21 Stop Date: 02/10/21 Status: CompletedDayQuil Cold & Flu oral capsule 2, Cap, Oral, 0 Refill(s) Start Date: 06/20/19 Stop Date: 12/10/19 Status: Discontinueddiclofenac potassium 50 mg oral tablet 50 mg, = 1, tab, po, TID, PRN, for arthritis, # 30, tab, 0 Refill(s), Pharmacy: [facility]#[id number], Back pain, 167, cm, 02/18/21 14:15:00 PDT, Height, 127.3, kg, 02/18/21 14:15:00 PDT, Weight Start Date: 04/26/21 Stop Date: 02/01/22 Status: Discontinueddiclofenac potassium 50 mg oral tablet 50 mg, = 1, tab, po, TID, PRN, for arthritis, # 30, tab, 0 Refill(s), Pharmacy: [facility],Back pain, 167, cm, 02/18/21 14:15:00 PDT, Height, 127.3, kg, 02/18/21 14:15:00 PDT, Weight Start Date: 03/07/21 Stop Date: 03/08/21 Status: Completeddoxycycline hyclate 100 mg oral capsule 100 mg, = 1, Cap, Oral, BID, X 7, day, # 14, Cap, 0 Refill(s), Pharmacy: [facility] #[id number], Otitis media Sinus congestion, 165.1, cm, 06/20/19 15:42:00 PST, Height, 110.6, kg, 06/20/19 15:42:00 PST, Weight Start Date: 06/20/19 Stop Date: 06/27/19 Status: CompletedFlector System 1.3% topical film, extended release 1, patch, Topical, BID, # 30, patch, 1 Refill(s), Pharmacy: [facility] #[id number], Injury of right hip Contusion, hip, 167.64, cm, 06/30/20 11:22:00 PST, Height, 104.327, kg, 04/11/20 12:12:00 PDT, Weight Start Date: 06/30/20 Stop Date: 07/01/20 Status: CompletedFlonase 50 mcg/inh nasal spray 1, spray, Both nostrils, BID, # 16, g, 0 Refill(s), Pharmacy: [facility] #[id number], Sinus congestion, 165.1, cm, 06/20/19 15:42:00 PST, Height, 110.6, kg, 06/20/19 15:42:00 PST, Weight Start Date: 06/20/19 Status: OrderedFlovent Diskus Inhalation, PRN, Wheezing, 0 Refill(s) Start Date: 11/08/16 Stop Date: 12/10/19 Status: DiscontinuedFlovent HFA 44 mcg/inh inhalation aerosol 2, puff, INH, BID, # 10.6, g, 1 Refill(s), Pharmacy: [facility] #[id number], Asthma, 165.1, cm,12/10/19 14:17:00 PDT, Height, 110.6, kg, 06/20/19 15:42:00 PST, Weight Start Date: 01/10/20 Status: OrderedFlovent HFA 44 mcg/inh inhalation aerosol 2, puff, INH, BID, # 10.6, g, 1 Refill(s), Pharmacy: [facility] #[id number], Asthma, 165.1, cm,06/20/19 15:42:00 PST, Height, 110.6, kg, 06/20/19 15:42:00 PST, Weight Start Date: 11/14/19 Stop Date: 06/30/20 Status: Discontinuedglycopyrrolate 1 mg oral tablet See Instructions, TAKE 1 TABLET BY MOUTH TWICE A DAY, # 60, tab, 3 Refill(s), Pharmacy: [facility] [id number] [facility], 167, cm, 05/24/21 15:50:00 PST, Height, 127.3, kg, 02/18/21 14:15:00 PDT, Weight Start Date: 12/20/21 Stop Date: 02/01/22 Status: Discontinuedglycopyrrolate 1 mg oral tablet 1 mg, = 1, tab, po, BID, # 60, tab, 0 Refill(s), Pharmacy: [facility] [id number] [facility], 167, cm, 05/24/21 15:50:00 PST, Height, 127.3, kg, 02/18/21 14:15:00 PDT, Weight Start Date: 11/25/21 Stop Date: 11/26/21 Status: Completedibuprofen prn, 0 Refill(s) Start Date: 10/24/18 Status: OrderedLatuda 20 mg oral tablet 20 mg, = 1, tab, po, DAILY, # 30, tab, 0 Refill(s) Start Date: 10/27/17 Stop Date: 10/24/18 Status: DiscontinuedMelatonin 5 mg oral capsule 5 mg, = 1, Cap, Oral, QHS, 0 Refill(s) Start Date: 01/20/17 Stop Date: 05/26/17 Status: DiscontinuedmethylPREDNISolone 4 mg oral tablet = 1, pkt, po, ONCE, as directed on package labeling, # 21, tab, 0 Refill(s), Pharmacy: [facility] [id number], Asthma, mild Acute bronchitis Start Date: 05/26/17 Stop Date: 10/27/17 Status: Discontinuedmupirocin 2% topical ointment 1, max, top, TID, # 15, g, 0 Refill(s), Pharmacy: [facility] [id number] Start Date: 10/27/17 Stop Date: 11/27/17 Status: CompletedNasacort Allergy 24HR 2, spray, nasal, DAILY, PRN, Allergy Symptoms, 0 Refill(s) Start Date: 11/08/16 Stop Date: 06/30/20 Status: DiscontinuedNexplanon 68 mg subcutaneous implant 68 mg, = 1, ea, Subcutaneous, ONCE, # 1, ea, 0 Refill(s), samples given to patient (Rx), Encounter for removal and reinsertion of Nexplanon Start Date: 02/05/21 Stop Date: 02/06/24 Status: OrderedNexplanon 68 mg subcutaneous implant 68 mg, = 1, ea, Subcutaneous, ONCE, 0 Refill(s) Start Date: 12/10/19 Stop Date: 02/05/21 Status: DiscontinuedNyquil Cold & Flu Oral, 0 Refill(s) Start Date: 06/20/19 Stop Date: 12/10/19 Status: DiscontinuedNyQuil Cough 30, mL, Oral, 0 Refill(s) Start Date: 05/26/17 Stop Date: 10/27/17 Status: DiscontinuedOrtho Tri-Cyclen Lo oral tablet 1, tab, po, DAILY, # 84, tab, 0 Refill(s), Pharmacy: [facility] [id number] Start Date: 10/27/17 Stop Date: 12/10/19 Status: DiscontinuedpredniSONE 20 mg oral tablet 40 mg, = 2, tab, po, DAILY, X 3, day, # 6, tab, 0 Refill(s), Pharmacy: [facility] [id number], Asthma exacerbation Start Date: 12/25/18 Stop Date: 12/28/18 Status: CompletedpredniSONE 20 mg oral tablet 40 mg, = 2, tab, po, DAILY, X 5, day, # 10, tab, 0 Refill(s), Pharmacy: [facility], Influenza B Asthma exacerbation, 165.1, cm, 06/20/19 15:42:00 PST, Height, 110.6, kg, 06/20/19 15:42:00 PST, Weight Start Date: 08/16/19 Stop Date: 08/21/19 Status: CompletedProAir HFA = 2, puff, Inhalation, PRN, Wheezing, 0 Refill(s) Start Date: 11/08/16 Status: OrderedProAir RespiClick 90 mcg/inh inhalation powder 0 Refill(s) Start Date: 02/18/21 Status: Orderedpropranolol 10 mg oral tablet 10 mg, = 1, tab, Oral, DAILY, 0 Refill(s) Start Date: 12/10/19 Status: OrderedPROzac 20 mg oral capsule 60 mg, = 3, Cap, po, DAILY, 0 Refill(s) Start Date: 05/26/17 Stop Date: 10/24/18 Status: DiscontinuedPyridium 200 mg oral tablet 200 mg, = 1, tab, po, TID, X 3, day, # 9, tab, 0 Refill(s), [id number], UTI (urinary tract infection), 167, cm, 05/24/21 15:50:00 PST, Height, 127.3, kg, 02/18/21 14:15:00 PDT, Weight Start Date: 05/24/21 Stop Date: 05/27/21 Status: CompletedPyridium 200 mg oral tablet 200 mg, = 1, tab, po, TID, X 3, day, # 9, tab, 0 Refill(s), Pharmacy: [facility] #[id number], UTI (urinary tract infection), 167, cm, 05/24/21 15:50:00 PST, Height, 127.3, kg, 02/18/21 14:15:00 PDT, Weight Start Date: 05/24/21 Stop Date: 05/27/21 Status: CompletedPyridium 200 mg oral tablet 200 mg, = 1, tab, po, TID, X 3, day, # 9, tab, 0 Refill(s), Pharmacy: [facility] #[id number], UTI symptoms, 167.64, cm, 06/30/20 11:22:00 PST, Height, 104.327, kg, 04/11/20 12:12:00 PDT, Weight Start Date: 12/11/20 Stop Date: 12/14/20 Status: CompletedRexulti 1 mg oral tablet 1 mg, = 1, tab, Oral, DAILY, 0 Refill(s) Start Date: 02/09/21 Stop Date: 05/24/21 Status: DiscontinuedRexulti 2 mg oral tablet 2 mg, = 1, tab, Oral, DAILY, 0 Refill(s) Start Date: 05/24/21 Status: Orderedrizatriptan 10 mg oral tablet See Instructions, TAKE 1 TABLET BY MOUTH DAILY NEEDED FOR MIGRAINE HEADACHE. MAY REPEAT DOSE EVERY 2 HOURS UP TO A. MAXIMUM OF 3, # 12, tab, 1 Refill(s), Pharmacy: [facility] #[id number], 167.64, cm, 06/30/20 11:22:00 PST, Height, 104.327, kg,... Start Date: 12/14/20 Status: Orderedrizatriptan 10 mg oral tablet 10 mg, = 1, tab, po, DAILY, PRN, for migraine headache, may repeat dose every 2 hours up to a maximum of 3, # 12, tab, 1 Refill(s), Pharmacy: [facility] #[id number], Migraine, 165.1, cm, 06/20/19 15:42:00 PST, Height, 110.6, kg, 06/20/19 15:42:00... Start Date: 11/19/19 Stop Date: 11/20/19 Status: Completedrizatriptan 10 mg oral tablet 10 mg, = 1, tab, po, DAILY, PRN, for migraine headache, may repeat dose every 2 hours up to a maximum of 3, # 12, tab, 0 Refill(s), Pharmacy: [facility], Migraine, 165.1, cm, 06/20/19 15:42:00PST, Height, 110.6, kg, 06/20/19 15:42:00 PST, We... Start Date: 07/27/19 Stop Date: 07/28/19 Status: CompletedSAM - e 400 mg JOHNIE - e 400 mg, See Instructions, take one to three tablets daily once in the morning, # 100, ea, 0 Refill(s), other reason (Rx) Start Date: 12/19/16 Stop Date: 05/26/17 Status: DiscontinuedSerine Serine, Oral, DAILY, 0 Refill(s) Start Date: 02/20/17 Stop Date: 05/26/17 Status: Discontinuedsertraline 100 mg oral tablet 100 mg, = 1, tab, Oral, QAM, 0 Refill(s) Start Date: 10/24/18 Status: OrderedSt. Alek's Wort 900 mg ca Vincent's Wort 900 mg ca, See Instructions, one capsule daily, # 100, Cap, 0 Refill(s), other reason (Rx) Start Date: 11/24/16 Stop Date: 12/19/16 Status: DiscontinuedSymbicort 160 mcg-4.5 mcg/inh inhalation aerosol 2, puff, INH, BID, # 1, ea, 2 Refill(s), Pharmacy: [facility] [id number], Asthma, mild Acute bronchitis Start Date: 05/26/17 Stop Date: 10/24/18 Status: DiscontinuedTamiflu 75 mg oral capsule 75 mg, = 1, Cap, po, BID, treatment, X 5, day, # 10, Cap, 0 Refill(s), Pharmacy: [facility] #[id number], Influenza B, 165.1, cm, 06/20/19 15:42:00 PST, Height, 110.6, kg, 06/20/19 15:42:00 PST, Weight Start Date: 06/20/19 Stop Date: 06/25/19 Status: CompletedTessalon 200 mg oral capsule 200 mg, = 1, Cap, po, TID, X 7, day, # 21, Cap, 0 Refill(s), Pharmacy: [facility] [id number], Asthma exacerbation Start Date: 12/25/18 Stop Date: 01/01/19 Status: CompletedTobradex 0.3%-0.1% ophthalmic suspension 2, Drops, opht, QID, X 5, day, # 5, mL, 0 Refill(s), Pharmacy: [facility] #[id number], 165.1, cm, 06/20/19 15:42:00 PST, Height, 110.6, kg, 06/20/19 15:42:00 PST, Weight Start Date: 06/21/19 Stop Date: 06/26/19 Status: CompletedtraZODone 100 mg oral tablet See Instructions, Half to 1 tab Oral QHS, 0 Refill(s) Start Date: 05/26/17 Status: OrderedTriNessa Lo 25 mcg oral tablet See Instructions, # 84 tab, Refill #: 2 Total Refills: 2, TAKE 1 TABLET BY MOUTH DAILY, [facility] [id number] Start Date: 01/19/18 Stop Date: 10/24/18 Status: DiscontinuedTyrosine Tyrosine, Oral, DAILY, 0 Refill(s) Start Date: 02/20/17 Stop Date: 05/26/17 Status: DiscontinuedVitamin B-12 Vitamin B-12, Sublingual, DAILY, 0 Refill(s) Start Date: 02/20/17 Stop Date: 05/26/17 Status: DiscontinuedVitamin B-Stress complex Vitamin B-Stress complex, Oral, DAILY, 0 Refill(s) Start Date: 02/20/17 Stop Date: 05/26/17 Status: DiscontinuedVitamin B2 Vitamin B2, Oral, DAILY, 0 Refill(s) Start Date: 02/20/17 Stop Date: 05/26/17 Status: DiscontinuedVitamin C Oral, 0 Refill(s) Start Date: 06/20/19 Stop Date: 12/10/19 Status: DiscontinuedVitamin D2 50,000 intl units (1.25 mg) oral capsule 50,000 International_Unit, = 1, Cap, Oral, QWEEK, # 13, Cap, 0 Refill(s), Pharmacy: [facility] #[id number], Vitamin D deficiency, 167.64, cm, 06/30/20 11:22:00 PST, Height, 104.327, kg, 04/11/20 12:12:00 PDT, Weight Start Date: 08/21/20 Stop Date: 02/18/21 Status: DiscontinuedVitamin D2 50,000 intl units (1.25 mg) oral capsule 50,000 International_Unit, = 1, Cap, Oral, QWEEK, # 13, Cap, 0 Refill(s), Pharmacy: [facility] #[id number], Vitamin D deficiency, 167, cm, 02/18/21 14:15:00 PDT, Height, 127.3, kg, 02/18/21 14:15:00 PDT, Weight Start Date: 02/18/21 Stop Date: 02/01/22 Status: DiscontinuedVraylar 3 mg oral capsule 3 mg, = 1, Cap, Oral, QHS, 0 Refill(s) Start Date: 08/21/20 Stop Date: 02/05/21 Status: DiscontinuedVyvanse 30 mg oral capsule See Instructions, 1 or 2 capsules orally once daily, # 60, Cap, 0 Refill(s) Start Date: 11/21/16 Stop Date: 12/19/16 Status: DiscontinuedVyvanse 60 mg oral capsule 60 mg, = 1, Cap, po, QAM, # 30, Cap, 0 Refill(s) Start Date: 12/19/16 Stop Date: 12/20/16 Status: DiscontinuedVyvanse 70 mg oral capsule 70 mg =, 1, Cap, po, DAILY, # 30, Cap, 0 Refill(s) Start Date: 01/20/17 Stop Date: 02/16/17 Status: CompletedVyvanse 70 mg oral capsule 70 mg =, 1, Cap, po, DAILY, # 30, Cap, 0 Refill(s) Start Date: 12/20/16 Stop Date: 01/20/17 Status: CompletedVyvanse 70 mg oral capsule 70 mg =, 1, Cap, po, DAILY, # 30, Cap, 0 Refill(s) Start Date: 02/16/17 Stop Date: 05/26/17 Status: Discontinuedzolpidem 5 mg oral tablet 5 mg, = 1, tab, po, QHS, PRN, Insomnia, X 15, day, # 15, tab, 0 Refill(s) Start Date: 12/21/15 Stop Date: 01/05/16 Status: Completed Immunizations Given and Recorded Vaccine Date Status Refusal Reason tetanus/diphth/pertuss (Tdap) adult/adol 02/18/21 Given tetanus/diphth/pertuss (Tdap) adult/adol 02/06/12 Recorde d influenza virus vaccine, inactivated 02/18/21 Recorded influenza virus vaccine, inactivated 04/03/20 Given influenza virus vaccine, inactivated 02/21/19 Recorded influenza virus vaccine, inactivated 02/15/18 Recorded influenza virus vaccine, inactivated 03/20/15 Recorded influenza virus vaccine, inactivated 02/24/12 Recorded influenza virus vaccine, inactivated 03/20/10 Recorded influenza virus vaccine, inactivated 03/12/10 Recorded influenza virus vaccine, inactivated 08/08/09 Recorded influenza virus vaccine, inactivated 07/12/09 Recorded SARS-CoV-2 (COVID-19) mRNA-1273 vaccine 11/01/20 Recorded SARS-CoV-2 (COVID-19) mRNA-1273 vaccine 10/04/20 Recorded meningococcal group B vaccine 05/29/19 Given meningococcal group B vaccine 02/21/19 Given typhoid vaccine, inactivated 08/27/18 Recorded meningococcal conjugate vaccine 01/20/17 Given human papillomavirus vaccine 08/14/12 Recorded human papillomavirus vaccine 05/04/12 Recorded human papillomavirus vaccine 02/06/12 Recorded meningococcal polysaccharide vaccine 02/06/12 Recorded influenza virus vaccine, [id number] 08/08/09 Recorde d influenza virus vaccine, [id number] 07/12/09 Recorde d varicella virus vaccine 01/08/09 Recorded varicella virus vaccine 01/07/02 Recorded poliovirus vaccine, inactivated 01/11/06 Recorded poliovirus vaccine, inactivated 01 Recorded poliovirus vaccine, inactivated 01 Recorded poliovirus vaccine, inactivated 01 Recorded measles/mumps/rubella virus vaccine 01/11/06 Recorded measles/mumps/rubella virus vaccine 01/07/02 Recorded diphtheria/tetanus/pertussis (DTaP) ped 01/11/06 Recorded diphtheria/tetanus/pertussis (DTaP) ped 04/12/02 Recorded diphtheria/tetanus/pertussis (DTaP) ped 01 Recorded diphtheria/tetanus/pertussis (DTaP) ped 01 Recorded diphtheria/tetanus/pertussis (DTaP) ped 01 Recorded hepatitis A pediatric vaccine 01/14/04 Recorded hepatitis A pediatric vaccine 01/20/03 Recorded hepatitis A pediatric vaccine1 01 Recorded pneumococcal 7-valent vaccine 01/20/03 Recorded pneumococcal 7-valent vaccine 01 Recorded pneumococcal 7-valent vaccine 01 Recorded pneumococcal 7-valent vaccine 01 Recorded haemophilus b conjugate vaccine 04/12/02 Recorded haemophilus b conjugate vaccine 01 Recorded haemophilus b conjugate vaccine 01 Recorded haemophilus b conjugate vaccine 01 Recorded hepatitis B pediatric vaccine 01 Recorded hepatitis B pediatric vaccine 01 Recorded hepatitis B pediatric vaccine 01 Recorded 1Result Comment: 2019-02-21: EXTERNAL ADMIN: [email or web address] Procedures Procedure Date Related Diagnosis Body Site Status Insertion of etonogestrel implant1 02/05/21 Completed Removal of etonogestrel implant 02/05/21 Completed [place] tooth 2018 Completed Insertion of etonogestrel radiopaque 03/19/18 Completed contraceptive implant ear tubes 2002 Completed 1Left upper arm Social History Social History Type Response Smoking Status Never smoker entered on: 11/08/16 Assessment and Plan Extracted from: Title: [facility] [employer] Annual Visit Author: Neelam Dyson PA-C Date: 02/01/22 1.??Well woman exam - Normal well woman annual exam but dis cussed chronic issues as below. - No period concerns. Mood stable. -??Nexplanon for control. - Gardasil?? complete . - Healthy habits, dietary and lifestyle choices reviewed and encouraged.?? Emphasized healthy diet, regular exercise and adequate sleep. - RTC in 1 year, sooner prn. Ordered: Est Patient CPE [id number] Yr (G) ?? 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 It is important that she evaluate all potentially contributing areas of her life, such as stress/mood/self esteem, fatigue, etc. Discussed some basi c strategies to get into the mood and en couraged her to discuss this with her partners. I also am hopeful that weaning off her Sertraline will be helpful. RTC prn. ?? 3.??Screening for malignant neoplasm of cervix - Reviewed ASCCP guidelines and screeni ng recommendations. First pap today. She will receive results by phone or portal. Ordered: Pathology Pap-HPV Request ?? 4.??Screen for STD (sexually transmitte d disease) - Asymptomatic, standard screening.?? Gunner johnsonwed that gonorrhea and chlamydia testing are recommended for her age group if sexually active. Otherwise low risk patient . - Discussed importance of condoms for S TI prevention. - She will receive results by phone or portal. Ordered: Chlamydia/GC EV ?? Future Appointments?? Diagnostic Tests PendingChlamydia/GC EV 02/01/22
--- OUTSIDE RECORDS SUMMARY | 2022-07-20 14:31 | XMS_ITS | Clinical Summary ---
:2000 Author Organization [facility] Address [address] [place] [address] Phone Care Team Providers Name Role Phone Catherine Arnett MD Unavailable [phone] Reason for Visit and Chief Complaint [Patient Encounter] Problems Includes: Problems addressed during this encounter and other active Problems All Visits Onset Date Resolved Date Provider Condition Stat us Allergic rhinitis, unspecified Unknown Active Last Documented On 07/21/2020 12:48PM ; Pediatrics Not e: Allergic Rhinitis: [facility] ASTHMA NOS Unknown Active Last Documented On 07/21/2020 12:48PM ; Pediatrics Not e: Asthma - Mild, Intermittent: [facility] Plan of Treatment No Plan of Treatment Recorded Assessments Includes: Assessments from this encounterNo Assessments Recorded Medical Equipment - Implanted Devices Includes: Current DevicesNo Medical Equipment Recorded Medications Administered Includes: Administered Medications from this encounterNo Administered Medications Recorded Vital Signs Includes: Vital Signs from this encounter Vital Name 01/23/2015 11:50A Blood Pressure Sitting (mmHg) 101/61 Pulse Rate-Sitting (bpm) 77 Height (in) 65.5 Weight (lb) 138.25 Body Mass Index (kg/m2) 22.7 Body Surface Area (m2) 1.7 Last Documented On: 07/19/2020 8:54AM ; [facility] Results Includes: Results discussed during [...] Note: Imported from external source. [facility] SEASONAL Allergy Active Last Documented On 07/21/2020 12:30PM ; Note: Imported from external source. [facility] GRASSES Allergy Active Last Documented On 07/21/2020 12:30PM ; Note: Imported from external source. [facility] Cats Allergy Active Last Documented On 07/21/2020 12:30PM ; Note: Imported from external source. [facility] AMOXICILLIN Allergy Active Last Documented On 07/21/2020 12:30PM ; Note: Imported from external source. [facility] NO KNOWN FOOD ALLERGIES Allergy Active Last Documented On 07/21/2020 12:30PM ; Note: Imported from external source. [facility] Encounters Encounter Provider Location Date Check-In Time Check-Out Time D iagnosis [Patient 01/23/2015 12:00AM 11:59PM Encounter] Insurance Includes: Active Insurance Policies Plan Name Member ID Group # Subscriber Relationship Effective Da eldon 1 - Premera J [id number] Moses Ledezma Other 2008 - [employer] Unknown Clinical Notes Includes: Clinical Notes from this encounterNo Clinical Notes Recorded
[2022-07-20 14:32] LABS: Slide Review Reflex No
[2022-07-20 14:36] VITALS: PULSE 90; O2SAT 94
[2022-07-20 14:38] LABS: Chloride* 105 mmol/L (96-114); Sodium* 141 mmol/L (135-149)
[2022-07-20 14:41] LABS: Blood Urea Nitrogen* 11 mg/dL (5-24); Carbon Dioxide* 27 mmol/L (20-32); Creatinine* 0.6 mg/dL (0.5-1.5); Est. Creatinine Clearance* 133.46; Estimated Glomerular Filt Rate 131 ml/min
[2022-07-20 14:42] LABS: Calcium* 9.4 mg/dL (8.4-10.6); D Dimer Quantitative* 0.33 ug/ml (0.00-0.50); Glucose* 100 mg/dL (60-115)
--- NOTE | 2022-07-20 14:44 | CRLHL7_ITS ---
For Patients: As a result of the Century Cures Act, medical imaging exams and procedure reports are released immediately into your electronic medical record. You may view this report before your referring provider. If you have questions, please contact your health care provider. Indication: Asthma, hypoxia Technique: Chest 2 views Comparison: Chest x-ray 07/31/2019 Findings/Impression: Cardiovascular and mediastinum: Heart size and vasculature are normal in caliber and appearance. Mediastinum is within normal limits. Lungs and pleural spaces: No pleural effusion or pneumothorax. No focal consolidation. Bones and soft tissues: No significant findings. Dictated by Jorge Puri MD @ 07/20/2022 3:08:46 PM (Electronically Signed)
[2022-07-20 15:43] VITALS: PULSE 84; RESP 16; O2SAT 96
== END 2022-07-20 15:48 | disposition home or self-care (01) ==
PROVIDERS: Emergency Provider Student in an Organized Health Care Education/Training Program
DX: J45.901 Unspecified asthma with (acute) exacerbation (principal)
CPT/HCPCS: 36415; 71046; 80048; 85025; 85379; 94640; 99284; J7512